=== PATIENT | female | born 1960 | race Caucasian/White ===

== ENCOUNTER 2024-06-25 06:53 | Day surgery (SDC) | payer OTHER ==
[2024-06-21 13:37] VITALS: BMI 22.2
[2024-06-25] MEDS ORDERED: LIDOCAINE HCL/PF 2% SDV 5ML VIAL ONE (07:44)
[2024-06-25] MEDS ORDERED: PROPOFOL 120 ML ONE (07:45)
[2024-06-25 12:56] VITALS: TEMP 97
[2024-06-25 13:02] VITALS: BP 108/61; PULSE 67; RESP 17
== END 2024-06-25 08:50 | disposition home or self-care (01) ==
LOC: FASU-ENDO 06:53
PROVIDERS: ATTEND Internal Medicine Gastroenterology
PROC: 0DB68ZX Excision of Stomach, Via Natural or Artificial Opening Endoscopic, Diagnostic (ICD-10-PCS; 2024-06-25)
PROC: 0DB48ZX Excision of Esophagogastric Junction, Via Natural or Artificial Opening Endoscopic, Diagnostic (ICD-10-PCS; 2024-06-25)
PROC: 0DB98ZX Excision of Duodenum, Via Natural or Artificial Opening Endoscopic, Diagnostic (ICD-10-PCS; principal; 2024-06-25 08:01)
DX: K29.70 Gastritis, unspecified, without bleeding (principal); B96.81 Helicobacter pylori [H. pylori] as the cause of diseases classified elsewhere; K29.80 Duodenitis without bleeding; K21.00 Gastro-esophageal reflux disease with esophagitis, without bleeding
CPT/HCPCS: 82962; 88305-TC; 88342-TC